=== PATIENT | male | born 1995 | race Caucasian/White ===

== ENCOUNTER 2021-07-10 04:38 | Emergency (ER) | payer OTHER ==
[~2021-07-10] VITALS: Ht 188 cm; Wt 142.9 kg
[2021-07-10 06:10] LABS: BUN/CREATININE RATIO 8 (0-10)
[2021-07-10 06:45] LABS: HEMOGLOBIN 13.7 gm/dl (14.0-17.5); RED BLOOD COUNT 4.94 M/UL (4.20-5.50); WHITE BLOOD COUNT 3.9 K/UL (4.5-11.0)
[2021-07-10] MEDS ORDERED: PAXIL30 MG PO (10:30)
[2021-07-11 04:05] LABS: RED BLOOD COUNT 4.69 M/UL (4.20-5.50); WHITE BLOOD COUNT 4.4 K/UL (4.5-11.0)
[2021-07-11 04:29] LABS: BUN/CREATININE RATIO 12 (0-10)
[2021-07-11] MEDS ORDERED: LEVOFLOXACIN750 MG PO (14:10)
[2021-07-11] MEDS ORDERED: DECADRON6 MG PO (14:10)
== END 2021-07-11 15:30 | disposition home or self-care (01) ==
LOC: ER1 04:38 → CDU 06:35 → ER1 06:35
PROVIDERS: Internal Medicine; Student in an Organized Health Care Education/Training Program
DX: U07.1 COVID-19 (principal); J96.91 Respiratory failure, unspecified with hypoxia
CPT/HCPCS: 36600; 71045; 80053; 82550; 82553; 82803; 83036; 83690; 83735; 83874; 83880; 84439; 84443; 84484; 85025; 85379; 86140; 93005; 96374; 96375; 99285; J1100; J1650; J1956; J7030

== ENCOUNTER → 2022-06-09 | Outpatient (CLI) | payer OTHER ==
[~2022-06-09] MED LIST: DECADRON6 MG PO; LEVOFLOXACIN750 MG PO; PAXIL30 MG PO
== END ==
LOC: EXRD 08:35
DX: R06.02 Shortness of breath (principal)
CPT/HCPCS: 71046